=== PATIENT | male | born 1975 | race Caucasian/White ===

== ENCOUNTER 2020-03-02 12:08 | Emergency (ER) | payer SELFPAY ==
[~2020-03-02] VITALS: Ht 165.1 cm; Wt 86.6 kg
[2020-03-02 12:19] VITALS: Ht 165.1 cm; Wt 86.6 kg
[2020-03-02 13:53] VITALS: BP 132/72
== END 2020-03-02 13:53 | disposition home or self-care (01) ==
LOC: ED 12:08
DX: H11.32 Conjunctival hemorrhage, left eye (principal)